=== PATIENT | female | born 1985 | race Caucasian/White ===

== ENCOUNTER → 2016-11-17 | Outpatient (CLI) | payer OTHER | LOC: M OUTALCOH 12:40 | PROVIDERS: ATTEND Psychiatry & Neurology Psychiatry | DX: Z13.9 Encounter for screening, unspecified (principal); F10.20 Alcohol dependence, uncomplicated ==

== ENCOUNTER 2016-12-05 10:00 | Outpatient (RCR) | payer MEDICAID | END 2016-12-10 | LOC: M OUTALCOH 10:00 | PROVIDERS: ATTEND Psychiatry & Neurology Psychiatry | DX: F10.20 Alcohol dependence, uncomplicated (principal); Z72.0 Tobacco use ==

== ENCOUNTER 2017-01-08 16:00 | Outpatient (RCR) | payer MEDICAID | END 2017-01-09 | LOC: M OUTALCOH 16:00 | PROVIDERS: ATTEND Psychiatry & Neurology Psychiatry | DX: F10.20 Alcohol dependence, uncomplicated (principal); Z72.0 Tobacco use ==

== ENCOUNTER 2017-02-04 08:00 | Outpatient (RCR) | payer MEDICAID | END 2017-02-09 | LOC: M OUTALCOH 08:00 | PROVIDERS: ATTEND Psychiatry & Neurology Psychiatry | DX: F10.20 Alcohol dependence, uncomplicated (principal); Z72.0 Tobacco use ==

== ENCOUNTER 2017-03-11 08:45 | Outpatient (RCR) | payer BC, MEDICAID | END 2017-03-12 | LOC: M OUTALCOH 08:45 | PROVIDERS: ATTEND Psychiatry & Neurology Psychiatry | DX: F10.20 Alcohol dependence, uncomplicated (principal); Z72.0 Tobacco use ==

== ENCOUNTER 2017-04-10 15:00 | Outpatient (RCR) | payer BC | END 2017-04-11 | LOC: M OUTALCOH 15:00 | PROVIDERS: ATTEND Psychiatry & Neurology Psychiatry | DX: F10.20 Alcohol dependence, uncomplicated (principal); Z72.0 Tobacco use ==

== ENCOUNTER → 2017-06-11 | Outpatient (RCR) | payer BC | LOC: M OUTALCOH 05-25 09:34 | PROVIDERS: ATTEND Psychiatry & Neurology Psychiatry | DX: F10.20 Alcohol dependence, uncomplicated (principal); Z72.0 Tobacco use ==

== ENCOUNTER 2017-06-18 15:00 | Outpatient (RCR) | payer BC | END 2017-07-12 | LOC: M OUTALCOH 06-23 08:00 | DX: F10.20 Alcohol dependence, uncomplicated (principal); Z72.0 Tobacco use ==

== ENCOUNTER 2017-07-30 16:00 | Outpatient (RCR) | payer BC | END 2017-08-12 | LOC: M OUTALCOH 08-06 16:00 | DX: F10.20 Alcohol dependence, uncomplicated (principal); Z72.0 Tobacco use ==

== ENCOUNTER 2017-08-14 15:36 | Outpatient (RCR) | payer BC | END 2017-09-09 | LOC: M OUTALCOH 15:36 | DX: F10.20 Alcohol dependence, uncomplicated (principal); Z72.0 Tobacco use ==

== ENCOUNTER → 2018-01-27 | Outpatient (CLI) | payer MEDICAID, SELFPAY | LOC: M OUTALCOH 07:49 | DX: Z13.9 Encounter for screening, unspecified (principal); F10.20 Alcohol dependence, uncomplicated ==

== ENCOUNTER 2018-02-04 15:09 | Outpatient (RCR) | payer MEDICAID, SELFPAY | END 2018-02-09 | LOC: M OUTALCOH 15:09 | DX: F10.20 Alcohol dependence, uncomplicated (principal); Z72.0 Tobacco use ==

== ENCOUNTER 2018-03-17 09:54 | Outpatient (RCR) | payer MEDICAID | END 2018-04-11 | LOC: M OUTALCOH 09:54 | DX: F10.20 Alcohol dependence, uncomplicated (principal); Z72.0 Tobacco use ==

== ENCOUNTER 2018-04-15 08:00 | Outpatient (RCR) | payer MEDICAID | END 2018-05-12 | LOC: M OUTALCOH 04-21 16:00 | DX: F10.20 Alcohol dependence, uncomplicated (principal); Z72.0 Tobacco use ==

== ENCOUNTER 2018-06-01 08:00 | Outpatient (RCR) | payer MEDICAID, OTHER | END 2018-06-11 | LOC: M OUTALCOH 08:00 | PROVIDERS: ATTEND Psychiatry & Neurology Psychiatry | DX: F10.20 Alcohol dependence, uncomplicated (principal); Z72.0 Tobacco use ==

== ENCOUNTER → 2018-07-12 | Outpatient (RCR) | payer MEDICAID | LOC: M OUTALCOH 06-21 10:13 | PROVIDERS: ATTEND Psychiatry & Neurology Psychiatry | DX: F10.20 Alcohol dependence, uncomplicated (principal); Z72.0 Tobacco use ==

== ENCOUNTER 2018-08-09 16:00 | Outpatient (RCR) | payer MEDICAID | END 2018-08-12 | LOC: M OUTALCOH 16:00 | PROVIDERS: ATTEND Psychiatry & Neurology Psychiatry | DX: F10.20 Alcohol dependence, uncomplicated (principal); Z72.0 Tobacco use ==

== ENCOUNTER 2018-09-03 09:00 | Outpatient (RCR) | payer MEDICAID | END 2018-09-09 | LOC: M OUTALCOH 09:00 | PROVIDERS: ATTEND Psychiatry & Neurology Psychiatry | DX: F10.20 Alcohol dependence, uncomplicated (principal); F17.200 Nicotine dependence, unspecified, uncomplicated ==

== ENCOUNTER → 2020-03-12 | Outpatient (CLI) | payer MEDICAID | LOC: M OUTALCOH 07:58 | PROVIDERS: ATTEND Psychiatry & Neurology Addiction Medicine | DX: F12.10 Cannabis abuse, uncomplicated (principal) ==

== ENCOUNTER → 2020-04-11 | Outpatient (RCR) | payer MEDICAID | LOC: M OUTALCOH 03-21 10:29 | PROVIDERS: ATTEND Psychiatry & Neurology Addiction Medicine | DX: F12.10 Cannabis abuse, uncomplicated (principal); F17.200 Nicotine dependence, unspecified, uncomplicated ==

== ENCOUNTER 2020-05-09 13:38 | Outpatient (RCR) | payer MEDICAID | END 2020-05-12 | LOC: M OUTALCOH 13:38 | PROVIDERS: ATTEND Psychiatry & Neurology Addiction Medicine | DX: F12.10 Cannabis abuse, uncomplicated (principal); F17.200 Nicotine dependence, unspecified, uncomplicated ==

== ENCOUNTER → 2020-06-11 | Outpatient (RCR) | payer MEDICAID | LOC: M OUTALCOH 05-16 13:40 | PROVIDERS: ATTEND Psychiatry & Neurology Addiction Medicine | DX: F12.10 Cannabis abuse, uncomplicated (principal); F17.200 Nicotine dependence, unspecified, uncomplicated ==

== ENCOUNTER → 2020-07-12 | Outpatient (RCR) | payer MEDICAID | LOC: M OUTALCOH 06-15 14:29 | PROVIDERS: ATTEND Psychiatry & Neurology Addiction Medicine | DX: F12.10 Cannabis abuse, uncomplicated (principal); F17.200 Nicotine dependence, unspecified, uncomplicated ==

== ENCOUNTER 2020-08-02 11:00 | Outpatient (RCR) | payer MEDICAID | END 2020-08-12 | LOC: M OUTALCOH 11:00 | PROVIDERS: ATTEND Psychiatry & Neurology Addiction Medicine | DX: F12.10 Cannabis abuse, uncomplicated (principal); F17.200 Nicotine dependence, unspecified, uncomplicated ==